=== PATIENT | female | born 1990 ===

== ENCOUNTER 2017-12-25 04:18 | Emergency (ER) | payer SELFPAY ==
[2017-12-25 04:50] VITALS: RESP 20
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
[2017-12-25 06:38] VITALS: BP 119/73; PULSE 86; TEMP 97.9
[2017-12-25 06:39] VITALS: O2SAT 99
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
== END 2017-12-25 06:58 | disposition home or self-care (01) ==
LOC: C.ER 04:18
DX: S16.1XXA Strain of muscle, fascia and tendon at neck level, initial encounter (principal); S62.303A Unspecified fracture of third metacarpal bone, left hand, initial encounter for closed fracture; V49.9XXA Car occupant (driver) (passenger) injured in unspecified traffic accident, initial encounter